=== PATIENT | female | born 1970 | race Caucasian/White ===

== ENCOUNTER → 2024-07-04 | Outpatient (CLI) | payer OTHER | END | disposition home or self-care (01) | LOC: MRI 07:25 | PROVIDERS: ATTEND Family Medicine Adult Medicine | DX: M67.431 Ganglion, right wrist (principal); M85.641 Other cyst of bone, right hand; M25.831 Other specified joint disorders, right wrist; M25.531 Pain in right wrist; G56.01 Carpal tunnel syndrome, right upper limb | CPT/HCPCS: 73221 ==